=== PATIENT | female | born 1950 | race Caucasian/White ===

== ENCOUNTER → 2024-04-26 10:57 | Outpatient (REF) | payer MEDICARE, OTHER, SELFPAY ==
--- NOTE | 2024-04-26 12:31 | PN.DE.MGMTRT ---
Insulin Management
- -
04/26/2024 Insulin Pump Management
Patient referred by Dr. Mohamud for insulin pump management. Landy is using the Tandem tslim x2 with control IQ and DexCom. She has printed several days of glucose reports. Utilizing the powell I can see she frequently turns her pump off resulting
in glucose > 200 then over corrects and drops again. She will go in and change the basal rates temporarily and the control IQ frequently has to deliver additional boluses. She also frequently eats late evening, 10pm and does not bolus for the
carbohydrate. Often when she exercises she just turns pump off; requested she start the activity program 1 hour before she exercises and continue 30 minutes after exercise. I asked her to not make changes in the pump and to bolus for all
carbohydrate eaten so the algorithm in the pump can re-program itself. In addition her pump basal rates are adjusted today:
original pump basal rates Changes 04/26/2024 correction carb ratio
12a .3 .35 65 15
4:40am .5 .4 60 15
6am .55 .5 60 15
11am .55 .5 60 15
6pm .9 .9 *no change 60 15
8pm .5 .4 60 15
10pm .3 .35 60 15
24 hr basal total 11.3 11.475
There is no change to correction factors or carb ratios.
She will email me daily starting Wednesday for further needed adjustments to the pump settings.
Diabetes History
- -
Type of Diabetes: 1
Pre-Admission Diabetes Regimen
Insulin Pump Settings
IP Diabetes Regimen
Patient Education
== END ==
LOC: DES 10:57
PROVIDERS: ATTENDING PHYSICIAN Internal Medicine
DX: E10.65 Type 1 diabetes mellitus with hyperglycemia (principal)
CPT/HCPCS: 99078

== ENCOUNTER → 2024-07-27 10:56 | Outpatient (REF) | payer MEDICARE, OTHER, SELFPAY ==
--- NOTE | 2024-07-27 15:02 | PN.DE.MGMTRT ---
Insulin Management
- -
07/27/2024 Insulin pump management follow up.
Patient last visit 03/2024. Returns today c/o glucose ups and downs. She did provide data sheets from tandem pump for 8 days. She repeatedly has a high glucose after most meals but in particular in the evening after dinner. When talking through
the meal and carb choices and bolus amounts she frequently underestimates the carbohydrate count and if she takes a snack in the evening she does not bolus for the snack. As a result glucose can go up as high as 27 and remain elevated most of the
overnight till about 5 AM.
Provided the following instructions:
1. Must bolus for all carbohydrate eaten. If concern for low blood glucose set alarm and double check fingerstick with sensor.
2. If high fat meal be sure to bolus for the known carbohydrate and 1 hour later take an additional unit to prevent the extended high glucose.
3. Skip dinner on a convenient night and provide glucose results every hour from 2pm to 9pm. Send results by email the next morning for adjustments if needed.
4. If glucose is 70 take only 2 ounces of juice, if glucose is less than 60 take 4 ounces of juice. (she often takes excess juice then is > 200).
5. Email glucose results to me.
She states she will see the pain doctor on July 31 and may have an epidural injection. I advised her to change to pump profile '2' after the injection. Record glucose results every two hours and email or call me with results to determine
if profile 2 requires adjustments.
Will continue to follow.
Diabetes History
- -
Type of Diabetes: 1
Pre-Admission Diabetes Regimen
Insulin Pump Settings
IP Diabetes Regimen
Patient Education
== END ==
LOC: DES 10:56
PROVIDERS: ATTENDING PHYSICIAN Internal Medicine
DX: E10.65 Type 1 diabetes mellitus with hyperglycemia (principal)
CPT/HCPCS: 99078